=== PATIENT | male | born 1960 | race Caucasian/White ===

== ENCOUNTER 2017-09-19 09:10 | Emergency (ER) | payer OTHER ==
[2017-09-19 09:17] VITALS: TEMP 98.6; BMI 26.9
--- NOTE | 2017-09-19 09:30 | PDOC ---
History of Present Illness - General History Source: Patient Exam Limitations: No Limitations - History of Present Illness Initial Comments: 09/19/17 10:58 The patient is a 56 year old male with significant PMH of COPD who presents to the emergency department with shortness of breath. He describes the shortness of breath as intermittent and worsened by exposure to fumes. The patient notes slight nasal congestion secondary to his shortness of breath. The patient reports that he has recently switched from regular cigarettes to vapor pipes. The patient denies headache, dizziness, swelling of the legs, and blood clots. Denies fever, chills, nausea, vomit, diarrhea and constipation. The patient denies traveling outside of the country. Allergies: NKA Past surgical history: None reported. Social history: Current smoker. No reported drug use. PCP: Dr. Peterson <Macy Mayo - Last Filed: 09/19/17 11:17> <Theodore Farnsworth - Last Filed: 09/19/17 12:03> - General Chief Complaint: Shortness of Breath Stated Complaint: RESPIRATORY Time Seen by Provider: 09/19/17 09:28 Past History <Macy Mayo - Last Filed: 09/19/17 11:17> - Past Medical History Asthma: Yes COPD: No DVT: No Thyroid Disease: Yes (Hypothyrodism) Other medical history: biateral hearing loss - Surgical History Abdominal Surgery: No Cholecystectomy: Yes - Immunization History Immunization Up to Date: Yes - Suicide/Smoking/Psychosocial Hx Smoking History: Former smoker Have you smoked in the past 12 months: No If you are a former smoker, when did you quit?: 3days Information on smoking cessation initiated: No Hx Alcohol Use: No Drug/Substance Use Hx: No Substance Use Type: None <Theodore Farnsworth - Last Filed: 09/19/17 12:03> - Past Medical History Allergies/Adverse Reactions: Allergies Allergy/AdvReac Type Severity Reaction Status Date / Time No Known Allergies Allergy Verified 09/19/17 09:11 Home Medications: Ambulatory Orders Albuterol Sulfate Inhaler - [Ventolin Hfa Inhaler -] 1 - 2 inh PO Q4H #1 inhaler 09/19/17 Budesonide/Formeterol Fumarate [SYMBICORT 80/4.5mcg -] 1 puff IH ASDIR 11/25/17 Levothyroxine [Synthroid -] 75 mcg PO DAILY 09/19/17 Prednisone [Deltasone -] 40 mg PO UTDICT #3 tablet 09/19/17 Review of Systems - Review of Systems Able to Perform ROS?: Yes Comments:: 09/19/17 10:59 A complete review of 10 out of 10 review of systems is taken and is negative apart from what is previously mentioned below and in the HPI. <Macy Mayo - Last Filed: 09/19/17 11:17> *Physical Exam - Vital Signs Last Vital Signs Temp Pulse Resp BP Pulse Ox 98.6 F 64 15 112/81 97 09/19/17 09:12 09/19/17 09:12 09/19/17 09:12 09/19/17 09:12 09/19/17 09:12 - Physical Exam Comments: 09/19/17 11:00 Vitals: Triage Vital signs reviewed General Appearance: no acute distress, well nourished well developed, Head: Atraumatic, normocephalic Nose: Nares patent bilaterally Throat: Posterior oropharynx without erythema, mucous membranes moist, Neck: Supple;No Nuchal rigidity Chest Wall: Nontender Cardiac: Regular rate and rhythm, no murmurs, no rubs, no gallops, Lungs: (+) Bilateral wheezing. Extremities: Full range of motion to all extremities, no cyanosis, clubbing, or edema Skin: Warm and dry, no rashes or lesions, no petechiae Neuro: AOX3; Cranial Nerves 2-12 grossly intact. Normal gait. Psych: normal mood, normal affect <Macy Mayo - Last Filed: 09/19/17 11:17> - Vital Signs Last Vital Signs Temp Pulse Resp BP Pulse Ox 98.6 F 64 15 112/81 97 09/19/17 09:12 09/19/17 09:12 09/19/17 09:12 09/19/17 09:12 09/19/17 09:12 <Theodore Farnsworth - Last Filed: 09/19/17 12:03> Heart Score/ECG Review #1 09/19/17 11:17 EKG performed at [9:19] demonstrates rate of [67], rhythm of [normal], axis equal to [normal]. no T wave inversions, no ST elevations <Macy Mayo - Last Filed: 09/19/17 11:17> ED Treatment Course - LABORATORY CBC & Chemistry Diagram: 09/19/17 10:00 09/19/17 10:00 - ADDITIONAL ORDERS Additional order review: 09/19/17 10:00 RBC 5.01 MCV 92.0 MCHC 34.0 RDW 13.8 MPV 8.3 D Neutrophils % 76.7 D Lymphocytes % 16.7 D Monocytes % 5.1 Eosinophils % 0.8 Basophils % 0.7 - Medications Given in the ED: ED Medications Discontinued Medications Generic Name Dose Route Start Last Admin Trade Name Freq PRN Reason Stop Dose Admin Albuterol/Ipratropium 1 amp 09/19/17 10:19 09/19/17 10:35 Duoneb - NEB 09/19/17 10:20 1 amp ONCE ONE Administration Albuterol/Ipratropium 2 amp 09/19/17 10:44 09/19/17 10:45 Duoneb - NEB 09/19/17 10:45 2 amp ONCE ONE Administration Prednisone 60 mg 09/19/17 10:44 09/19/17 10:45 Deltasone - PO 09/19/17 10:45 60 mg ONCE ONE Administration <Macy Mayo - Last Filed: 09/19/17 11:17> - LABORATORY CBC & Chemistry Diagram: 09/19/17 10:00 09/19/17 10:00 - RADIOLOGY Radiology Studies Ordered: Category Date Time Status CXRPORT [CHEST X-RAY PORTABLE*] [RAD] Stat Radiology 09/19/17 09:29 Ordered <Theodore Farnsworth - Last Filed: 09/19/17 12:03> Medical Decision Making - Medical Decision Making Plan: Cardio: EKG Medications: Albuterol; Prednisone <Macy Mayo - Last Filed: 09/19/17 11:17> - Medical Decision Making 09/19/17 10:55 History and examination consistent with COPD exacerbation. We'll treat with 2 mg prednisone chest x-ray labs 1 troponin given 1 week of chest tightness and reassess 09/19/17 11:46 Reevaluation 1145 patient feels much better after steroids and nebs no longer wheezing will follow-up with his doctor on Thursday history and examination consistent with COPD exacerbation Findings, the need for follow-up, strict return instructions discussed with patient. <Theodore Farnsworth - Last Filed: 09/19/17 12:03> *DC/Admit/Observation/Transfer - Attestations Scribe Attestion: 09/19/17 11:02 Documentation prepared by Macy Mayo, acting as medical policy specialist for Theodore Farnsworth MD. <Macy Mayo - Last Filed: 09/19/17 11:17> <Theodore Farnsworth - Last Filed: 09/19/17 12:03> Diagnosis at time of Disposition: COPD (chronic obstructive pulmonary disease) Qualifiers: COPD type: unspecified COPD Qualified Code(s): J44.9 - Chronic obstructive pulmonary disease, unspecified - Discharge Dispostion Disposition: HOME - Prescriptions Prescriptions: Albuterol Sulfate Inhaler - [Ventolin Hfa Inhaler -] 1 - 2 inh PO Q4H #1 inhaler Prednisone [Deltasone -] 40 mg PO UTDICT #3 tablet - Referrals Referrals: Jair Peterson MD [Primary Care Provider] - - Patient Instructions Printed Discharge Instructions: Chronic Obstructive Pulmonary Disease Additional Instructions: Ventolin and prednisone as prescribed. Follow-up with her doctor on Thursday. Return to the emergency department for any severe worsening symptoms or for any concerns.
[2017-09-19 10:14] LABS: BASOPHIL 0.7 % (0-2.0); EOSINOPHIL 0.8 % (0-4.5); MCH 31.2 pg (25.7-33.7); MEAN PLT VOLUME 8.3 fl (7.5-11.1); NEUTROPHILS 76.7 % (42.8-82.8); PLATELET COUNT 180 K/MM3 (134-434); RDW 13.8 % (11.9-15.9); WHITE BLOOD COUNT 11.6 K/mm3 (4.0-10.0)
[2017-09-19] MEDS ORDERED: ALBUTEROL SO4 2.5/IPRATROPIUM 0.5 INH SOL 3 ML VIAL.NEB. NEB ONE ×4 (10:19→10:46)
[2017-09-19 10:36] LABS: ANION GAP 6 (8-16); CALCIUM 9.3 mg/dL (8.5-10.1); CO2 26 mmol/L (21-32); CREATININE 1.1 mg/dL (0.7-1.3); GLUCOSE,RANDOM 90 mg/dL (74-106)
[2017-09-19] MEDS ORDERED: ALBUTEROL SO4 0.083% IH SOL 2.5 MG/3 ML VIAL.NEB. NEB ONE (10:37)
[2017-09-19 10:41] LABS: TROPONIN I < 0.02 ng/ml (0.00-0.05)
[2017-09-19] MEDS ORDERED: predniSONE 20 MG TABLET (UD) PO ONE (10:44)
[2017-09-19] MEDS ORDERED: predniSONE 20 MG TABLET (UD) ONE (10:45)
[2017-09-19] MEDS ORDERED: IPRATROPIUM BR 0.02% 0.5 MG/2.5 ML VIAL.NEB. NEB ONE (10:46)
[2017-09-19 12:51] VITALS: BP 125/85; PULSE 91
--- NOTE | 2017-09-21 22:19 | EKG ---
Test Reason : Blood Pressure : / mmHG Vent. Rate : 067 BPM Atrial Rate : 067 BPM P-R Int : 166 ms QRS Dur : 090 ms QT Int : 364 ms P-R-T Axes : 073 080 070 degrees QTc Int : 384 ms NORMAL SINUS RHYTHM NORMAL ECG WHEN COMPARED WITH ECG OF 10-MAR-2012 12:09, NO SIGNIFICANT CHANGE WAS FOUND Confirmed by HUSSEIN CORBETT MD ([id number]) on 09/21/2017 10:19:24 PM Referred By: Confirmed By:HUSSEIN CORBETT MD
== END 2017-09-19 12:51 | disposition home or self-care (01) ==
LOC: JER 09:10
PROC: 3E0F7GC Introduction of Other Therapeutic Substance into Respiratory Tract, Via Natural or Artificial Opening (ICD-10-PCS; principal; 2017-09-19)
PROC: 3E0F7GC Introduction of Other Therapeutic Substance into Respiratory Tract, Via Natural or Artificial Opening (ICD-10-PCS; 2017-09-19)
DX: J44.9 Chronic obstructive pulmonary disease, unspecified (principal); E03.9 Hypothyroidism, unspecified; H91.93 Unspecified hearing loss, bilateral; J45.909 Unspecified asthma, uncomplicated; Z87.891 Personal history of nicotine dependence
CPT/HCPCS: 36415; 71010-TC; 80048; 84484; 85025; 93005; 93010; 94640; 99284-25

== ENCOUNTER 2018-03-25 07:40 | Day surgery (SDC) | payer OTHER ==
[2018-03-25 09:57] VITALS: BMI 26.6
[2018-03-25] MEDS ORDERED: PROPOFOL 20 ML ONE ×2 (10:24)
[2018-03-25 11:11] VITALS: TEMP 98
[2018-03-25 12:32] VITALS: BP 121/67; PULSE 74
--- NOTE | 2018-03-25 12:32 | PROC ---
Endoscopy Procedure Endoscopy procedure completed. Please see scanned procedure report.
--- NOTE | 2018-03-26 16:04 | PATH ---
Surgical Pathology Report Patient Name: CYNTHIA LEBRON [facility] Rec. #: [id number] /Age/Gender: 1960 (Age: 57) / M Account: [id number] Location: U-ENDOSCOPY Taken: 03/25/2018 Received: 03/25/2018 Reported: 03/26/2018 Physicians: Damion Manning M.D. Specimen(s) Received A: BX 2ND PORTION DUODENUM B: BX ANTRUM AND BODY C: ASCENDING COLON POLYP Clinical History Colon cancer screening, epigastric pain Postoperative diagnosis: Gastritis, duodenitis, colon polyp, internal hemorrhoids Final Diagnosis A. DUODENUM, SECOND PORTION, BIOPSY: DUODENAL MUCOSA WITH MILD CHRONIC DUODENITIS. B. ANTRUM AND BODY, BIOPSY: GASTRIC MUCOSA WITH MODERATEL ACTIVE CHRONIC GASTRITIS. IMMUNOSTAIN IS POSITIVE FOR H. PYLORI ORGANISMS. C. ASCENDING COLON POLYP, BIOPSY: TUBULAR ADENOMA. Electronically Signed Petra Laguerre M.D. Gross Description A. Received in formalin, labeled "biopsy second portion of duodenum" is a giordano, irregular portion of soft tissue measuring 0.3 cm. in greatest dimension. The specimen is submitted in toto in one cassette. B. Received in formalin, labeled "biopsy antrum and body" are 3 giordano, irregular portions of soft tissue ranging from 0.2-0.5 cm. in greatest dimension. The specimens are submitted in toto in one cassette. C. Received in formalin, labeled "biopsy polyp ascending colon" are 4 giordano, irregular portions of soft tissue ranging from 0.1-0.3 cm. in greatest dimension. The specimens are submitted in toto in one cassette. /03/25/2018 formerly [facility]03/25/2018
== END 2018-03-25 12:15 | disposition home or self-care (01) ==
LOC: JASU-ENDO 07:40
PROVIDERS: ATTEND Internal Medicine Gastroenterology
PROC: 0DB98ZX Excision of Duodenum, Via Natural or Artificial Opening Endoscopic, Diagnostic (ICD-10-PCS; 2018-03-25)
PROC: 0DB68ZX Excision of Stomach, Via Natural or Artificial Opening Endoscopic, Diagnostic (ICD-10-PCS; 2018-03-25)
PROC: 0DBK8ZX Excision of Ascending Colon, Via Natural or Artificial Opening Endoscopic, Diagnostic (ICD-10-PCS; principal; 2018-03-25 09:30)
DX: Z12.11 Encounter for screening for malignant neoplasm of colon (principal); K57.30 Diverticulosis of large intestine without perforation or abscess without bleeding; K63.5 Polyp of colon; K64.8 Other hemorrhoids; K29.80 Duodenitis without bleeding; K29.60 Other gastritis without bleeding
CPT/HCPCS: 88305-TC; 88342-TC

== ENCOUNTER 2018-08-20 07:10 | Day surgery (SDC) | payer OTHER ==
[2018-08-20 08:41] VITALS: BMI 25.8
[2018-08-20] MEDS ORDERED: MIDAZOLAM HCL 2 MG/2 ML SINGLE DOSE VIAL ONE ×2 (09:07)
--- NOTE | 2018-08-20 09:07 | HP ---
CHIEF COMPLAINT: bilateral groin bulging and masses PCP:Kristen HISTORY OF PRESENT ILLNESS: known b/l hernias for 5 years now enlarging and interfering w/ his ADL Recent Travel:none PAST MEDICAL HISTORY:pancreatitis/asthma PAST SURGICAL HISTORY:lap tonie Social History: Smoking:yes Alcohol:none Drugs: none Family History:n/a Allergies nkda No Known Allergies Allergy (Verified 08/20/18 08:44) HOME MEDICATIONS: Home Medications Medication Instructions Recorded Levothyroxine [Synthroid -] 88 mcg PO DAILY 09/19/17 Ibuprofen 400 mg PO DAILY 08/19/18 Sennosides [Senna -] 1 tab PO DAILY 08/19/18 Tamsulosin HCl 0.4 mg PO DAILY 08/19/18 PHYSICAL EXAMINATION Vital Signs - 24 hr 08/19/18 08/20/18 08/20/18 18:04 08:38 08:44 Temperature 97.8 F 97.8 F Pulse Rate 64 64 Respiratory 20 20 Rate Blood Pressure 110/76 110/76 O2 Sat by Pulse 98 Oximetry (%) GENERAL: Awake, alert, and fully oriented, in no acute distress. HEAD: Normal with no signs of trauma. EYES: Pupils equal, round and reactive to light, extraocular movements intact, sclera anicteric, conjunctiva clear. No lid lag. EARS, NOSE, THROAT: Ears normal, nares patent, oropharynx clear without exudates. Moist mucous membranes. NECK: Normal range of motion, supple without lymphadenopathy, JVD, or masses. LUNGS: Breath sounds equal, clear to auscultation bilaterally. No wheezes, and no crackles. No accessory muscle use. HEART: Regular rate and rhythm, normal S1 and S2 without murmur, rub or gallop. ABDOMEN: Soft, nontender, not distended, normoactive bowel sounds, no guarding, no rebound, no masses. No hepatomegaly or splenomegaly. b/l reducible inguinal hernias; genitali are normal; both testes are descended MUSCULOSKELETAL: Normal range of motion at all joints. No bony deformities or tenderness. No CVA tenderness. UPPER EXTREMITIES: 2+ pulses, warm, well-perfused. No cyanosis. No clubbing. No peripheral edema. LOWER EXTREMITIES: 2+ pulses, warm, well-perfused. No calf tenderness. No peripheral edema. NEUROLOGICAL: Cranial nerves II-XII intact. Normal speech. Normal gait. PSYCHIATRIC: Cooperative. Good eye contact. Appropriate mood and affect. SKIN: Warm, dry, normal turgor, no rashes or lesions noted, normal capillary refill. ASSESSMENT/PLAN: bilateral inguinal hernias; for open repair w/mesh; r/b/t/a's d/w him; recurrence d/w him; informed consent obtained. Jan Zeng MD FACS Visit type - Emergency Visit Emergency Visit: No - New Patient This patient is new to me today: No - Critical Care Critical Care patient: No
[2018-08-20] MEDS ORDERED: LIDOCAINE HCL 1%, 10 MG/ML (20ML VIAL) NR ONE ×4 (09:30→09:57)
[2018-08-20] MEDS ORDERED: ceFAZolin SODIUM 1 GM VIAL IVPB ONE ×2 (09:30→09:53)
[2018-08-20] MEDS ORDERED: BUPIVACAINE HCL/PF 0.5% (5MG/ML) 10 ML VIAL IJ ONE ×4 (09:30→09:57)
[2018-08-20] MEDS ORDERED: fentaNYL CITRATE 250 MCG/5 ML VIAL ONE (09:36)
[2018-08-20] MEDS ORDERED: ROCURONIUM BROMIDE 50 MG/5 ML VIAL ONE (09:36)
[2018-08-20] MEDS ORDERED: PROPOFOL 20 ML ONE (09:37)
[2018-08-20] MEDS ORDERED: LIDOCAINE HCL/PF 2% SDV 5ML VIAL ONE (09:50)
[2018-08-20] MEDS ORDERED: DEXAMETHASONE SOD PHOSPHATE 4 MG/1 ML VIAL ONE (09:50)
[2018-08-20] MEDS ORDERED: KETOROLAC TROMETHAMINE 30 MG/1 ML VIAL ONE (09:50)
[2018-08-20] MEDS ORDERED: ceFAZolin SODIUM 1 GM VIAL ONE (09:50)
--- NOTE | 2018-08-20 12:06 | OP ---
Operative Note - Note: Operative Date: 08/20/18 Pre-Operative Diagnosis: bilateral inguinal hernias Operation: repair b/l inguinal hernias w/mesh Findings: direct hernias; left recurrent after previous repair as a child Post-Operative Diagnosis: Same as Pre-op Surgeon: Jan Zeng Client Development Director: Edith Mohr Anesthesiologist/ROTOR COIL TAPER: Arabella Linder MD Anesthesia: General Estimated Blood Loss (mls): 20
[2018-08-20] MEDS ORDERED: oxyCODONE HCL 5 MG TABLET PO PRN (12:23)
[2018-08-20] MEDS ORDERED: PROMETHAZINE HCL 25 MG/1 ML VIAL IVPB PRN (12:23)
[2018-08-20] MEDS ORDERED: ONDANSETRON 4 MG/2 ML VIAL IVPUSH PRN (12:23)
[2018-08-20] MEDS ORDERED: LACTATED RINGERS SOLUTION 1,000 ML IV SCH (12:30)
--- NOTE | 2018-08-20 14:41 | SURG ---
Surgery Hazmat Tanker Driver Note Hazmat Tanker Driver: Edith Mohr PA-C (Suzy) Date of Service: 08/20/18 Diagnosis: bilateral inguinal hernias Procedure: repair b/l inguinal hernias w/mesh I was present for the entirety of the operative procedure. For further detail, please refer to operative report. Visit type - Case Type Case Type: Scheduled - Emergency Emergency Visit: No - New patient This patient is new to me today: Yes Date on this admission: 08/20/18
[2018-08-20 17:04] VITALS: BP 127/65; PULSE 68; TEMP 97.8
--- NOTE | 2018-08-23 17:41 | OP ---
DATE OF OPERATION: 08/20/2018 PREOPERATIVE DIAGNOSIS: Bilateral inguinal hernias. POSTOPERATIVE DIAGNOSIS: Bilateral inguinal hernias, left recurrent. PROCEDURE: Repair right inguinal hernia with mesh. SURGEON: Jan Zeng MD DRUM SPRAYER: Paula Mohr PA-C ANESTHESIA: General. OPERATIVE FINDINGS: There was an indirect right inguinal hernia and a recurrent (direct) left inguinal hernia after a previous left inguinal hernia repair as a child. These hernias consisted of herniating preperitoneal fat through the floor of the inguinal canal. The rest of the findings were unremarkable. DESCRIPTION OF PROCEDURE: The patient was placed on the operating table in supine position. After induction of general anesthesia, the patient's lower abdomen and groins were prepped with ChloraPrep and draped in a sterile fashion. Surgery was started on the right side where a right transverse groin incision was made and taken down through skin and subcutaneous tissue and Yanely fascia to the external oblique fascia. This was opened proximally and distally in the direct of its fibers through the external ring. The cord structures and nerve were elevated at the pubic tubercle and a Unity drain placed around them for retraction and identification purposes. No indirect hernia was found, and the previously noted findings were observed. A piece of Parietex Progrip mesh was fashioned into the floor of the inguinal canal anchored to the pubic tubercle shelving edge and conjoint tendon respectively with interrupted 2-0 Prolene. A keyhole was created for the cord and the tails of the mesh brought above the level of the internal ring and anchored there with interrupted 2-0 Prolene. Hemostasis was checked for and noted to be good and then the cord structures were returned to their normal anatomic position and the external oblique fascia closed using continuous 2-0 Vicryl recreating the external ring. Yanely fascia was reapproximated with interrupted 2-0 Vicryl, the deep dermis with interrupted 3-0 Vicryl, and the skin edges with 4-0 Monocryl in a subcuticular continuous fashion. At this time, attention was turned to the left groin where a similar procedure was carried out and the incision closed in a similar fashion. At this point, Steri-Strips, fluffs, and dry sterile dressings were placed on both groins and the procedure terminated at this point and the patient aroused from general anesthesia and transferred to the post anesthesia care unit in stable condition awake and alert. ESTIMATED BLOOD LOSS: 20 mL. REPLACEMENTS: Crystalloid. DRAINS: None. SPECIMENS: None. I, Jan Zeng, was physically present in the operating room from the time the patient was placed on the operating room table until he was transferred to the post anesthesia care unit in [employer] [facility]. MD LEANDRO Back/[id number] MTDD
== END 2018-08-20 15:15 | disposition home or self-care (01) ==
LOC: JASU-SURG 07:10
PROVIDERS: ATTEND Surgery
PROC: 0YUA0JZ Supplement Bilateral Inguinal Region with Synthetic Substitute, Open Approach (ICD-10-PCS; principal; 2018-08-20 09:00)
DX: K40.21 Bilateral inguinal hernia, without obstruction or gangrene, recurrent (principal)
CPT/HCPCS: 94760

== ENCOUNTER 2018-10-11 09:13 | Emergency (ER) | payer OTHER ==
[2018-10-11 09:27] VITALS: BP 115/68; PULSE 70; TEMP 97.8; BMI 26.6
--- NOTE | 2018-10-11 10:20 | PDOC ---
History of Present Illness - General Chief Complaint: Pain, Acute Stated Complaint: LEG PAIN Time Seen by Provider: 10/11/18 09:59 History Source: Patient Exam Limitations: Clinical Condition - History of Present Illness Initial Comments: 10/11/18 10:15 Patient with no significant past medication present with complaint of intermittent aching pain to left lower leg for 4 days. Patient reported pain comes and lasts a few minutes and goes away. Patient denies any fall or injury to leg. Patient denies any calf muscle pain . patient denies any other symptoms Timing/Duration: other (4 days) Past History - Past Medical History Allergies/Adverse Reactions: Allergies Allergy/AdvReac Type Severity Reaction Status Date / Time No Known Allergies Allergy Verified 08/20/18 08:44 Home Medications: Ambulatory Orders Levothyroxine [Synthroid -] 88 mcg PO DAILY 09/19/17 Ibuprofen 400 mg PO DAILY 08/19/18 Sennosides [Senna -] 1 tab PO DAILY 08/19/18 Tamsulosin HCl 0.4 mg PO DAILY 08/19/18 Oxycodone HCl 5 mg PO Q6H PRN #30 tablet MDD 8 08/20/18 Asthma: Yes COPD: No DVT: No Thyroid Disease: Yes (Hypothyrodism) - Surgical History Abdominal Surgery: No Cholecystectomy: Yes Lung Surgery: No - Immunization History Immunization Up to Date: Yes - Suicide/Smoking/Psychosocial Hx Smoking History: Current every day smoker Have you smoked in the past 12 months: No Number of Cigarettes Smoked Daily: 10 If you are a former smoker, when did you quit?: 3days Information on smoking cessation initiated: No Hx Alcohol Use: No Drug/Substance Use Hx: No Substance Use Type: None Hx Substance Use Treatment: No Review of Systems - Review of Systems Able to Perform ROS?: Yes Is the patient limited Syriac proficient: No Constitutional: No: Diaphoresis, Weakness HEENTM: No: Recent change in vision Respiratory: No: Symptoms reported Cardiac (ROS): No: Symptoms Reported ABD/GI: No: Symptoms Reported Musculoskeletal: No: Back Pain, Joint Pain, Joint Swelling, Muscle Pain (left lateral lower leg), Muscle Weakness, Joint Stiffness Neurological: No: Numbness, Paresthesia, Tingling, Weakness, Unsteady Gait All Other Systems: Reviewed and Negative *Physical Exam - Vital Signs Last Vital Signs Temp Pulse Resp BP Pulse Ox 97.8 F 70 16 115/68 99 10/11/18 09:24 10/11/18 09:24 10/11/18 09:24 10/11/18 09:24 10/11/18 09:24 - Physical Exam Comments: 10/11/18 10:17 GENERAL: Well developed, well nourished. Awake and alert. No acute distress. CARDIOVASCULAR: Regular rate and rhythm. No murmurs, rubs, or gallops. PULMONARY: No evidence of respiratory distress. Lungs clear to auscultation bilaterally. No wheezing, rales or rhonchi. ABDOMINAL: Soft. Non-tender. Non-distended. No rebound or guarding. No organomegaly. Normoactive bowel sounds MUSCULOSKELETAL : mild tenderness over lateral aspect of left distal area of leg above ankle area. No bony deformities EXTREMITIES: No cyanosis. No clubbing. No edema. No calf tenderness. SKIN: Warm and dry. Normal capillary refill. No rashes. No jaundice. NEUROLOGICAL: Alert, awake, appropriate. No motor deficits in the lower extremities. Gait is normal without ataxia. PSYCHIATRIC: Cooperative. Good eye contact. Appropriate mood and affect. General Appearance: Yes: Nourished, Appropriately Dressed. No: Apparent Distress Moderate Sedation - Procedure Monitoring Vital Signs: Procedure Monitoring Vital Signs Temperature 97.8 F 10/11/18 09:24 Pulse Rate 70 10/11/18 09:24 Respiratory Rate 16 10/11/18 09:24 Blood Pressure 115/68 10/11/18 09:24 O2 Sat by Pulse Oximetry (%) 99 10/11/18 09:24 ED Treatment Course - RADIOLOGY Radiology Studies Ordered: Category Date Time Status LEG TIB/FIB-LEFT [RAD] Stat Radiology 10/11/18 10:04 Ordered Medical Decision Making - Medical Decision Making 10/11/18 10:18 Patient with no significant past medication present with complaint of intermittent aching pain to lateral side of left lower leg for 4 days without trauma or injury. Patient denies any other symptoms. Clinical exam unremarkable except mild tenderness to lateral aspect of distal tibia of left lower leg. No increased warmth to skin. No calf tenderness. No evidence of DVT on exam. Symptoms likely muscle sprain. X-ray of left lower leg ordered to rule out any stress fracture. 10/11/18 10:34 X-rays of left leg negative. Pt stable for discharge with PCP follow-up *DC/Admit/Observation/Transfer Diagnosis at time of Disposition: Left leg pain - Discharge Dispostion Disposition: HOME Condition at time of disposition: Stable Decision to Admit order: No - Referrals Referrals: Jair Peterson MD [Primary Care Provider] - - Patient Instructions Printed Discharge Instructions: Muscle Strain Additional Instructions: X-ray was negative. Take motrin as needed for pain. come back if worsening pain , calf pain, swelling to lower leg - Post Discharge Activity
== END 2018-10-11 10:42 | disposition home or self-care (01) ==
LOC: JERFT 09:13
DX: M79.662 Pain in left lower leg (principal); F17.210 Nicotine dependence, cigarettes, uncomplicated; J45.909 Unspecified asthma, uncomplicated; E03.9 Hypothyroidism, unspecified
CPT/HCPCS: 73590-TC-LT-FY; 99281-25

== ENCOUNTER 2020-01-05 10:55 | Emergency (ER) | payer OTHER ==
[2020-01-05 11:00] VITALS: BP 121/81; PULSE 78; TEMP 98.2; BMI 29.8
--- NOTE | 2020-01-05 11:51 | PDOC ---
History of Present Illness - General Chief Complaint: Pain Stated Complaint: LFT LEG PAIN Time Seen by Provider: 01/05/20 11:27 History Source: Patient - History of Present Illness Initial Comments: 01/05/20 12:02 Chief complaint: Leg pain Patient is 59-year-old male with a history of hypo-thyroid, aortic aneurysm that is being monitored and "heart problems". Patient is complaining of left leg pain for 3 days going from the ankle to the knee. Patient has no chest pain, shortness of breath, fever, travel or injury GENERAL/CONSTITUTIONAL: No fever, weakness. dizziness HEAD, EYES, EARS, NOSE AND THROAT: No change in vision. No ear pain or discharge. No sore throat. CARDIOVASCULAR: No chest pain RESPIRATORY: No shortness of breath or cough GASTROINTESTINAL: No pain, nausea, vomiting, diarrhea or constipation GENITOURINARY: No dysuria MUSCULOSKELETAL: No neck or back pain, + left leg SKIN: No rash NEUROLOGIC: No headache, vertigo, loss of consciousness, or loss of sensation. GENERAL: The patient is awake, alert, and fully oriented, in no acute distress. HEAD: Normal with no signs of trauma. EYES: Pupils equal, round and reactive to light, sclera anicteric, conjunctiva clear. ENT: pharynx: no erythema, no exudate, uvula midline NECK: supple CHEST: clear, nontender, rr ABD: soft, nontender BACK: no tenderness or signs of injury EXTREMITIES: Left leg with mild tenderness to the lateral aspect, no gross swelling, no signs of infection, no bruising or deformity. Neurovascular intact. Rest of extremities, normal range of motion, no edema. NEUROLOGICAL: Normal speech, cranial nerves II through XII grossly intact, no gross focal abnormalities SKIN: Warm, Dry Past History - Past Medical History Allergies/Adverse Reactions: Allergies Allergy/AdvReac Type Severity Reaction Status Date / Time No Known Allergies Allergy Verified 01/05/20 11:00 Home Medications: Ambulatory Orders Levothyroxine [Synthroid -] 88 mcg PO DAILY 09/19/17 Ibuprofen 400 mg PO DAILY 08/19/18 Sennosides [Senna -] 1 tab PO DAILY 08/19/18 Tamsulosin HCl 0.4 mg PO DAILY 08/19/18 Oxycodone HCl 5 mg PO Q6H PRN #30 tablet MDD 8 10/26/18 Asthma: Yes COPD: No DVT: No Thyroid Disease: Yes (Hypothyrodism) - Surgical History Abdominal Surgery: No Cholecystectomy: Yes Lung Surgery: No - Immunization History Immunization Up to Date: Yes - Psycho Social/Smoking Cessation Hx Smoking History: Never smoked Have you smoked in the past 12 months: No Number of Cigarettes Smoked Daily: 10 If you are a former smoker, when did you quit?: 3days Hx Alcohol Use: No Drug/Substance Use Hx: No Substance Use Type: None Hx Substance Use Treatment: No *Physical Exam - Vital Signs Last Vital Signs Temp Pulse Resp BP Pulse Ox 98.2 F 78 18 121/81 99 01/05/20 10:58 01/05/20 10:58 01/05/20 10:58 01/05/20 10:58 01/05/20 10:58 Medical Decision Making - Medical Decision Making 01/05/20 12:16 59-year-old male with history of CAD, aortic aneurysm that is being monitored, hyperal thyroid who has a few days of left leg pain, nontraumatic. No signs of infection, no gross swelling or deformity. Patient is limping. Patient states he took ibuprofen at home. Patient is documented for having similar in EMR with not any positive findings. Will do x-ray and ultrasound. Discharge - Discharge Information Problems reviewed: Yes Clinical Impression/Diagnosis: Leg pain, left Condition: Stable Disposition: HOME - Admission No - Follow up/Referral Referrals: Jair Peterson MD [Primary Care Provider] - Jaiden Gutierrez MD [Staff Physician] - - Patient Discharge Instructions Patient Printed Discharge Instructions: DI for Leg Pain Additional Instructions: You can continue to take ibuprofen for your pain you can also take the tramadol you have at home. Use the cane. Follow-up with the orthopedist listed below you can also follow-up with your primary care doctor as you have an appointment next week - Post Discharge Activity
== END 2020-01-05 13:56 | disposition home or self-care (01) ==
LOC: JERFT 10:55
DX: M79.662 Pain in left lower leg (principal); E03.9 Hypothyroidism, unspecified; I71.9 Aortic aneurysm of unspecified site, without rupture; Z90.49 Acquired absence of other specified parts of digestive tract
CPT/HCPCS: 73590-TC-LT-FY; 93971-TC; 99284-25

== ENCOUNTER 2023-06-22 04:53 | Day surgery (SDC) | payer OTHER ==
[2023-06-18 11:46] VITALS: BMI 27.1
[2023-06-22 10:05] VITALS: TEMP 97.7
[2023-06-22 11:51] VITALS: BP 135/85; PULSE 70; RESP 17
== END 2023-06-22 11:10 | disposition home or self-care (01) ==
LOC: JASU-ENDO 04:53
PROVIDERS: ATTEND Internal Medicine Gastroenterology
PROC: 0DBM8ZX Excision of Descending Colon, Via Natural or Artificial Opening Endoscopic, Diagnostic (ICD-10-PCS; 2023-06-22)
PROC: 0DBN8ZX Excision of Sigmoid Colon, Via Natural or Artificial Opening Endoscopic, Diagnostic (ICD-10-PCS; 2023-06-22)
PROC: 0DBK8ZX Excision of Ascending Colon, Via Natural or Artificial Opening Endoscopic, Diagnostic (ICD-10-PCS; principal; 2023-06-22 09:30)
DX: D12.2 Benign neoplasm of ascending colon (principal); K63.5 Polyp of colon; K64.8 Other hemorrhoids; K57.30 Diverticulosis of large intestine without perforation or abscess without bleeding
CPT/HCPCS: 88305-TC